=== PATIENT | female | born 1950 | race Caucasian/White ===

== ENCOUNTER 2016-10-29 14:14 | Emergency (ER) | payer MEDICARE, OTHER ==
--- NOTE | 2016-10-29 14:45 | EDM.PDOC ---
ED HPI GENERAL MEDICAL PROBLEM - General Chief Complaint: Cardiovascular Problem Stated Complaint: HIGH BLOOD PRESSURE Time Seen by Provider: 10/29/16 14:44 Source of Information: Reports: Patient History Limitations: Reports: No Limitations - History of Present Illness INITIAL COMMENTS - FREE TEXT/NARRATIVE: Patient is 66-year-old female presents ED with concerns of elevated blood pressure. Patient was seen by her kitchen and bath designer Dr. oLera at [facility] this past . Patient was instructed to stop taking her Imdur and also metoprolol. She was started on Coreg 6.25 mg twice a day with meals. In addition diltiazem was decreased from 360 mg every day to 240 mg. States since doing so she's noticed her blood pressure has been all over the place. She states at times she has felt it increasing and develops a mild headache. She's had some mild dizziness with intermittent slight chest discomfort rated very mildly 0-1/10. She presents to the ED with only headache present. She denies chest pain, shortness of breath, nausea/vomiting, vision changes, weakness, numbness/tingling, presyncopal episodes/syncopal episode, or any additional complaints. Chest Pain Score (Numeric/FACES): 2 - Related Data Allergies Allergy/AdvReac Type Severity Reaction Status Date / Time codeine Allergy Intermediate Confusion Verified 10/29/16 14:24 prednisone Allergy Intermediate Confusion Verified 10/29/16 14:24 Home Meds: Home Meds Aspirin [Halfprin] 81 mg PO BID 05/29/13 [History] Digoxin [Lanoxin] 125 mcg PO DAILY 30 Days tablet 09/04/13 [Rx] LORazepam [Ativan] 0.5 mg PO Q8H PRN 10 Days tab 09/04/13 [Rx] Escitalopram Oxalate 1 tab PO DAILY 09/02/14 [History] Omeprazole 1 tab PO ACBRK 09/02/14 [History] Warfarin Sodium 0.5 tab PO SUTUWETHSA 09/02/14 [History] Warfarin Sodium 1 tab PO MOFR 09/02/14 [History] Carvedilol [Coreg] 6.25 mg PO BIDMEALS 10/29/16 [History] Diltiazem [Cardizem CD] 240 mg PO ACBRK 10/29/16 [History] Past Medical History HEENT History: Reports: Cataract Cardiovascular History: Reports: High Cholesterol, Hypertension Other Cardiovascular History: atrial fib Respiratory History: Reports: Bronchitis, Recurrent - Past Surgical History GI Surgical History: Reports: Bariatric Procedure Other GI Surgeries/Procedures: laparoscopic Social & Family History - Tobacco Use Smoking Status *Q: Current Every Day Smoker Years of Tobacco use: 25 Packs/Tins Daily: 0.7 Used Tobacco, but Quit: No Month Tobacco Last Used: august Second Hand Smoke Exposure: Yes - Caffeine Use Caffeine Use: Reports: Coffee - Alcohol Use Days Per Week of Alcohol Use: 7 Number of Drinks Per Day: 4 Total Drinks Per Week: 28 - Recreational Drug Use Recreational Drug Use: No Drug Use in Last 12 Months: No - Living Situation & Occupation Living situation: Reports: Occupation: Retired ED ROS GENERAL - Review of Systems Review Of Systems: ROS reveals no pertinent complaints other than HPI. ED EXAM, GENERAL - Physical Exam Exam: See Below Exam Limited By: No Limitations General Appearance: Alert, WD/WN, No Apparent Distress Eye Exam: Bilateral Eye: EOMI, PERRL Ears: Hearing Grossly Normal Nose: Normal Inspection, Normal Mucosa Throat/Mouth: Normal Voice, No Airway Compromise Neck: Normal Inspection, Supple Respiratory/Chest: No Respiratory Distress, Lungs Clear, Normal Breath Sounds, No Accessory Muscle Use, Chest Non-Tender Cardiovascular: Normal Peripheral Pulses, Regular Rate, Rhythm Peripheral Pulses: 2+: Radial (R) GI/Abdominal: Normal Bowel Sounds, Soft, Non-Tender, No Organomegaly, No Distention Back Exam: Normal Inspection Extremities: Normal Inspection, Normal Range of Motion, Non-Tender, No Pedal Edema, Normal Capillary Refill Neurological: Alert, Oriented, CN II-XII Intact, Normal Cognition, No Motor/ Sensory Deficits Psychiatric: Normal Affect, Normal Mood Skin Exam: Warm, Dry, Intact, Normal Color Course - Vital Signs Last Recorded V/S: Last Vital Signs Temp 98.6 F 10/29/16 14:38 Pulse 68 10/29/16 16:53 Resp 18 10/29/16 16:53 BP 178/88 H 10/29/16 16:53 Pulse Ox 99 10/29/16 16:53 - Orders/Labs/Meds Orders: Active Orders 24 hr Category Date Time Status EKG 12 Lead [EKG Documentation Completion] [RC] STAT Care 10/29/16 14:43 Active Meds: Medications Discontinued Medications Generic Name Dose Route Start Last Admin Trade Name Freq PRN Reason Stop Dose Admin Clonidine HCl 0.1 mg 10/29/16 15:08 10/29/16 15:14 Catapres PO 10/29/16 15:09 0.1 mg ONETIME ONE Administration - Re-Assessments/Exams Free Text/Narrative Re-Assessment/Exam: Patient complains of only mild headache. EKG: A Fib at a rate of 79. Borderline left axis deviation. Mild ST depression to V5-V6, I. T waves flat VL, Decreased voltage limb leads. Offered to obtain blood work to ensure no SD presents. She refuses. States pain to the left side is a 0-10. Common issue with blood pressure elevation. Discussed with Dr. Parker. Suggests starting previous dose of cardizem 360mg PO daily for additional wk allowing coreg to take affect. Will order clonidine 0.1mg PO x1. 10/29/16 16:21 Reassessment, BP did trend down nicely with administration of clonidine, 140/s. Patient just returned from the bathroom and recheck of bp indicated 180/s. She had no symptoms with ambulation. She is ready to be discharged home. Departure - Departure Time of Disposition: 16:23 Disposition: Home, Self-Care 01 Condition: Good Clinical Impression: Essential hypertension Instructions: Hypertension, [id number] Referrals: Vannesa Bowman, [employer] [Primary Care Provider] - Forms: ED Department Discharge Additional Instructions: As discussed will have you continue taking the coreg 6.25mg twice a day as prescribed by Dr. Loera. Will have you go back to original dose of diltiazem 360mg every day for the next wk. Thereafter coreg should be therapeutic and thus may decrease dose of diltiazem to 240mg qd. Continue to monitor BP three times daily, same time, same way everyday.Keep daily log. Allow yourself to rest/relax for 5 to 10 minutes prior to checking. See your PCP this week to ensure BP is normalizing.Followup with Dr. Loera in two wks as scheduled. Return to the E.D. for any new or worsening symptoms. - My Orders Last 24 Hours: My Active Orders 10/29/16 14:43 EKG 12 Lead [EKG Documentation Completion] [RC] STAT - Assessment/Plan Last 24 Hours: My Active Orders 09/03/17 14:43 EKG 12 Lead [EKG Documentation Completion] [RC] STAT
[2016-10-29] MEDS ORDERED: cloNIDine 0.1 MG Tab PO ONE (15:08)
[2016-10-29 17:02] VITALS: BP 178/88
== END 2016-10-29 16:30 | disposition home or self-care (01) ==
LOC: JD.ED 14:14
DX: I10 Essential (primary) hypertension (principal); E78.00 Pure hypercholesterolemia, unspecified; F17.210 Nicotine dependence, cigarettes, uncomplicated; Z88.5 Allergy status to narcotic agent; Z79.82 Long term (current) use of aspirin; Z79.899 Other long term (current) drug therapy; Z79.01 Long term (current) use of anticoagulants
CPT/HCPCS: 93005; 99283; A9270

== ENCOUNTER 2019-04-29 08:14 | Emergency (ER) | payer MEDICARE, OTHER ==
[2019-04-29] MEDS ORDERED: Sodium Chloride 0.9% 1,000 ML IV SCH (08:45)
--- NOTE | 2019-04-29 08:46 | EDM.PDOC ---
ED HPI GENERAL MEDICAL PROBLEM - General Chief Complaint: Cardiovascular Problem Stated Complaint: SOB/FAST HEART RATE Time Seen by Provider: 04/29/19 08:40 Source of Information: Reports: Patient History Limitations: Reports: No Limitations - History of Present Illness INITIAL COMMENTS - FREE TEXT/NARRATIVE: 68-year-old female presents to the ED with a history of racing heart / palpitations. Associated dyspnea on minimal exertion usually with walking. She states that she has had a paroxysmal nonproductive cough for the better part of 4 to 5 weeks. No associated fever or chills. She does not have any definitive orthopnea or PND. Denies any chest pain but occasionally has heaviness in her central chest. Is still smoking a half a pack to a pack per day. Denies any hemoptysis. Has never noticed any swelling in her lower extremities. Denies any recent changes to medications. She does have a cardiology appointment set up in [place] later this afternoon. Patient seemed to have more symptoms last night at about 2030 hrs. with palpitations and heavy pressure in her central chest. This is the reason she came to the ED this morning. Onset: Gradual Onset Date: 03/29/19 Duration: Week(s): (States he has been symptomatic for between 4 and 5 weeks.), Chronic, Constant Location: Reports: Chest Quality: Reports: Pressure Severity: Mild Improves with: Reports: None Worsens with: Reports: Other Context: Denies: Activity, Exercise, Lifting (Walking seems to make it a bit worse.), Sick Contact, Trauma, Other Associated Symptoms: Reports: Cough, Malaise. Denies: No Other Symptoms, Confusion, Chest Pain (Nonproductive chronic cough), cough w sputum, Diaphoresis , Fever/Chills, Headaches, Loss of Appetite, Nausea/Vomiting, Rash, Seizure, Shortness of Breath, Syncope, Weakness Treatments H[employer] OFFBEARER: Reports: Other (see below) Chest Pain Score (Numeric/FACES): 8 - Related Data Allergies Allergy/AdvReac Type Severity Reaction Status Date / Time codeine AdvReac Intermediate Confusion Verified 04/29/19 08:49 prednisone AdvReac Intermediate Confusion Verified 04/29/19 08:49 Home Meds: Home Meds Aspirin [Halfprin] 81 mg PO BID 05/29/13 [History] Digoxin [Lanoxin] 125 mcg PO DAILY 30 Days tablet 07/10/14 [Rx] LORazepam [Ativan] 0.5 mg PO Q8H PRN 10 Days tab 09/04/13 [Rx] Escitalopram Oxalate 10 mg PO DAILY 09/02/14 [History] Omeprazole 20 mg PO ACBRK 09/02/14 [History] Warfarin Sodium 2.5 mg PO TUFR 09/02/14 [History] Warfarin Sodium 5 mg PO SUMOWETHSA 09/02/14 [History] Carvedilol [Coreg] 6.25 mg PO BIDMEALS 10/29/16 [History] Diltiazem HCl [Cardizem Cd] 360 mg PO DAILY #30 cap.er.24h 04/29/19 [Rx] Diltiazem HCl [Diltiazem 24Hr ER] 240 mg PO BEDTIME 04/29/19 [History] Furosemide [Lasix] 40 mg PO DAILY #30 tablet 04/29/19 [Rx] dilTIAZem HCl [Diltiazem 24Hr ER (Cd)] 120 mg PO QPM 04/29/19 [History] Past Medical History HEENT History: Reports: Cataract Cardiovascular History: Reports: High Cholesterol, Hypertension Other Cardiovascular History: atrial fib Respiratory History: Reports: Bronchitis, Recurrent - Past Surgical History GI Surgical History: Reports: Bariatric Procedure Other GI Surgeries/Procedures: laparoscopic Social & Family History - Caffeine Use Caffeine Use: Reports: Coffee - Living Situation & Occupation Living situation: Reports: Occupation: Retired ED ROS GENERAL - Review of Systems Review Of Systems: See Below Constitutional: Reports: Malaise, Weakness, Fatigue. Denies: Fever, Chills HEENT: Reports: No Symptoms Respiratory: Reports: Shortness of Breath, Cough. Denies: Wheezing, Pleuritic Chest Pain Cardiovascular: Reports: Chest Pain (Planes of a central chest heaviness off and on.), Blood Pressure Problem, Dyspnea on Exertion, Lightheadedness, Palpitations. Denies: Claudication, Edema, Orthopnea Endocrine: Reports: Fatigue GI/Abdominal: Reports: Constipation (Occasional problems with constipation. States she uses laxatives or Colace every other night.) : Reports: Frequency Musculoskeletal: Reports: Back Pain, Joint Pain Skin: Reports: Bruising Neurological: Reports: No Symptoms (Bruises easily as she is on Coumadin.) Psychiatric: Reports: No Symptoms Hematologic/Lymphatic: Reports: No Symptoms Immunologic: Reports: No Symptoms ED EXAM, GENERAL - Physical Exam Exam: See Below Exam Limited By: No Limitations General Appearance: Alert, WD/WN, No Apparent Distress, Other (BP is 161/106 heart rate is 75) Eye Exam: Bilateral Eye: Normal Inspection Throat/Mouth: Normal Inspection, Normal Lips, Normal Teeth, Normal Oropharynx, Other (Is dry and mildly coated.) Head: Atraumatic, Normocephalic Neck: Normal Inspection, Supple, Non-Tender, Full Range of Motion. No: Lymphadenopathy (L), Lymphadenopathy (R) Respiratory/Chest: No Respiratory Distress, No Accessory Muscle Use, Decreased Breath Sounds (3 sterane treated both posterior lung ross by 20%. Questionable small pleural effusion on the right side clinically.). No: Respiratory Distress, Rales, Rhonchi, Wheezing Cardiovascular: Normal Peripheral Pulses, No Edema, No Murmur, No Rub, Irregularly Irregular (Monitor shows atrial fibrillation controlled rate) Peripheral Pulses: 2+: Posterior Tibial (L), Posterior Tibial (R), Dorsalis Pedis (L), Dorsalis Pedis (R) GI/Abdominal: Normal Bowel Sounds, Soft, Non-Tender, No Organomegaly, No Abnormal Bruit, No Mass, Pelvis Stable Back Exam: Normal Inspection, Full Range of Motion. No: CVA Tenderness (L), CVA Tenderness (R) Extremities: Normal Inspection, Normal Range of Motion, Non-Tender, No Pedal Edema Neurological: Alert, Oriented, CN II-XII Intact, Normal Cognition Psychiatric: Normal Affect, Normal Mood Skin Exam: Warm, Dry, Intact, Normal Color, No Rash EKG INTERPRETATION EKG Date: 04/29/19 Time: 08:40 Rhythm: A-Fib (With rate of 52 to 75/min) Rate (Beats/Min): 73 [place]: Normal P-Wave: Absent QRS: Other (There is Q wave in V1 and initial poor R wave progression. Consider old anteroseptal myocardial infarction.) ST-T: Other (Minimal ST segment depression V4 and V5.) QT: Normal EKG Interpretation Comments: Abnormal ECG Course - Vital Signs Last Recorded V/S: Last Vital Signs Temp 36.8 C 04/29/19 11:50 Pulse 80 04/29/19 11:50 Resp 16 04/29/19 11:50 BP 151/66 H 04/29/19 11:50 Pulse Ox 92 L 04/29/19 11:50 - Orders/Labs/Meds Orders: Active Orders 24 hr Category Date Time Status EKG Documentation Completion [RC] STAT Care 04/29/19 08:41 Active Labs: Laboratory Tests 04/29/19 04/29/19 04/29/19 Range/Units 08:30 08:30 08:30 WBC 4.24 (3.98-10.04) K/mm3 RBC 4.02 (3.98-5.22) M/mm3 Hgb 11.2 D (11.2-15.7) gm/dl Hct 35.6 (34.1-44.9) % MCV 88.6 D (79.4-94.8) fl MCH 27.9 (25.6-32.2) pg MCHC 31.5 L (32.2-35.5) g/dl RDW Std Deviation 49.9 H (36.4-46.3) fL Plt Count 308 D (182-369) K/mm3 MPV 8.7 L (9.4-12.3) fl Neut % (Auto) 59.0 (34.0-71.1) % Lymph % (Auto) 21.2 (19.3-51.7) % [place] % (Auto) 13.9 H (4.7-12.5) % Eos % (Auto) 5.2 (0.7-5.8) Baso % (Auto) 0.5 (0.1-1.2) % Neut # (Auto) 2.50 (1.56-6.13) K/mm3 Lymph # (Auto) 0.90 L (1.18-3.74) K/mm3 [place] # (Auto) 0.59 H (0.24-0.36) K/mm3 Eos # (Auto) 0.22 (0.04-0.36) K/mm3 Baso # (Auto) 0.02 (0.01-0.08) K/mm3 PT 27.6 H (9.7-12.0) SECONDS INR 2.68 APTT 37 H (22-31) SECONDS Sodium 138 (136-145) mEq/L Potassium 4.8 (3.5-5.1) mEq/L Chloride 103 (98-107) mEq/L Carbon Dioxide 27 (21-32) mEq/L Anion Gap 12.8 (5-15) BUN 10 (7-18) mg/dL Creatinine 0.9 (0.55-1.02) mg/dL Est Cr Clr Drug Dosing 46.00 mL/min Estimated GFR (MDRD) > 60 (>60) mL/min BUN/Creatinine Ratio 11.1 L (14-18) Glucose 117 H (80-115) mg/dL Calcium 8.6 (8.5-10.1) mg/dL Magnesium 2.1 (1.8-2.4) mg/dl Total Bilirubin 0.4 (0.2-1.0) mg/dL AST 17 (15-37) U/L ALT 18 (14-59) U/L Alkaline Phosphatase 68 (46-116) U/L CK-MB (CK-2) 1.1 (0-3.6) ng/ml Troponin I < 0.017 (0.00-0.056) ng/mL C-Reactive Protein 0.5 (<1.0) mg/dL NT-Pro-B Natriuret Pep (0-125) pg/mL Total Protein 8.0 (6.4-8.2) g/dl Albumin 3.3 L (3.4-5.0) g/dl Globulin 4.7 gm/dL Albumin/Globulin Ratio 0.7 L (1-2) Urine Color (Yellow) Urine Appearance (Clear) Urine pH (5.0-8.0) Ur Specific [place] (1.005-1.030) Urine Protein (Negative) Urine Glucose (UA) (Negative) Urine Ketones (Negative) Urine Occult Blood (Negative) Urine Nitrite (Negative) Urine Bilirubin (Negative) Urine Urobilinogen (0.2-1.0) Ur Leukocyte Esterase (Negative) Urine RBC (0-5) /hpf Urine WBC (0-5) /hpf Ur Squamous Epith Cells (0-5) /hpf Urine Bacteria (FEW) /hpf Urine Mucus (FEW) /hpf Digoxin 0.6 L (0.9-2.0) ng/mL 04/29/19 04/29/19 Range/Units 08:30 10:35 WBC (3.98-10.04) K/mm3 RBC (3.98-5.22) M/mm3 Hgb (11.2-15.7) gm/dl Hct (34.1-44.9) % MCV (79.4-94.8) fl MCH (25.6-32.2) pg MCHC (32.2-35.5) g/dl RDW Std Deviation (36.4-46.3) fL Plt Count (182-369) K/mm3 MPV (9.4-12.3) fl Neut % (Auto) (34.0-71.1) % Lymph % (Auto) (19.3-51.7) % [place] % (Auto) (4.7-12.5) % Eos % (Auto) (0.7-5.8) Baso % (Auto) (0.1-1.2) % Neut # (Auto) (1.56-6.13) K/mm3 Lymph # (Auto) (1.18-3.74) K/mm3 [place] # (Auto) (0.24-0.36) K/mm3 Eos # (Auto) (0.04-0.36) K/mm3 Baso # (Auto) (0.01-0.08) K/mm3 PT (9.7-12.0) SECONDS INR APTT (22-31) SECONDS Sodium (136-145) mEq/L Potassium (3.5-5.1) mEq/L Chloride (98-107) mEq/L Carbon Dioxide (21-32) mEq/L Anion Gap (5-15) BUN (7-18) mg/dL Creatinine (0.55-1.02) mg/dL Est Cr Clr Drug Dosing mL/min Estimated GFR (MDRD) (>60) mL/min BUN/Creatinine Ratio (14-18) Glucose (80-115) mg/dL Calcium (8.5-10.1) mg/dL Magnesium (1.8-2.4) mg/dl Total Bilirubin (0.2-1.0) mg/dL AST (15-37) U/L ALT (14-59) U/L Alkaline Phosphatase (46-116) U/L CK-MB (CK-2) (0-3.6) ng/ml Troponin I (0.00-0.056) ng/mL C-Reactive Protein (<1.0) mg/dL NT-Pro-B Natriuret Pep 2138 H (0-125) pg/mL Total Protein (6.4-8.2) g/dl Albumin (3.4-5.0) g/dl Globulin gm/dL Albumin/Globulin Ratio (1-2) Urine Color Light yellow (Yellow) Urine Appearance Clear (Clear) Urine pH 7.0 (5.0-8.0) Ur Specific [place] 1.025 (1.005-1.030) Urine Protein Negative (Negative) Urine Glucose (UA) Negative (Negative) Urine Ketones Negative (Negative) Urine Occult Blood Trace-lysed H (Negative) Urine Nitrite Negative (Negative) Urine Bilirubin Negative (Negative) Urine Urobilinogen 0.2 (0.2-1.0) Ur Leukocyte Esterase Negative (Negative) Urine RBC 5-10 H (0-5) /hpf Urine WBC 0-5 (0-5) /hpf Ur Squamous Epith Cells 0-5 (0-5) /hpf Urine Bacteria Few (FEW) /hpf Urine Mucus Not seen (FEW) /hpf Digoxin (0.9-2.0) ng/mL Meds: Medications Discontinued Medications Generic Name Dose Route Start Last Admin Trade Name Akinq PRN Reason Stop Dose Admin Diltiazem HCl 300 mg 04/29/19 10:06 04/29/19 10:12 Cardizem Cd PO 04/29/19 10:07 Not Given ONETIME ONE Furosemide 40 mg 04/29/19 09:48 04/29/19 10:11 Lasix IVPUSH 04/29/19 09:49 40 mg NOW ONE Administration Sodium Chloride 1,000 mls @ 125 mls/hr 04/29/19 08:45 04/29/19 09:15 Normal Saline IV 125 mls/hr ASDIRECTED JASON Administration - Radiology Interpretation Free Text/Narrative:: 68-year-old female presents to the ED with recurrent feeling of her heart racing and skipping in her chest. By history she has chronic atrial fibrillation and is on Coumadin and diltiazem and digoxin for rate control. Reports she has been having symptoms off and on for the last 3 weeks. She has a paroxysmal nonproductive cough with no significant orthopnea or PND but dyspnea on minimal exertion. Last evening she had a feeling of racing heart and some central heavy pressure in her chest. Suggest that she has some angina associated with a rapid rate. At the time of presentation to the ED heart rate is in the 70s and appears that her atrial fib rate is well controlled. He is mildly hypoxic with O2 sats of 92 to 93% on room air. Blood pressure is 151/ 63. Exam suggest possible small pleural effusion on the right side with decreased air entry to both lower lung ross. However she is also a cigarette smoker with COPD changes. Routine labs including cardiac markers ECG and chest x-ray to be done. She is mildly dry at this time. Given normal saline at 125 mils per hour. - Re-Assessments/Exams Free Text/Narrative Re-Assessment/Exam: 04/29/19 09:24 chest x-ray reveals normal cardiac silhouette. There is slight prominence of the right pulmonary artery. No pleural effusions and no pulmonary infiltrates evident. 04/29/19 09:48 Hematology reveals a white count of 4.24. There is 59% neutrophils on the auto differential. Hemoglobin is 11.2 slightly low with a hematocrit of 35.6. MCV is 88.6. Platelet count 308,000. PT is 27.6 with an INR of 2.68 slightly supratherapeutic. PTT is 37 sodium is 138 with a potassium of 4.8. Chloride 103 with a bicarb 27 anion gap is 12.8. BUN is 10 with a creatinine of 0.9. GFR remains greater than 60. Glucose 117. Calcium 8.6. Magnesium normal at 2.1. Liver function is normal. CK-MB is 1.1 with a troponin I of less than 0.017. C-reactive protein is 0.5 BNP is elevated at 2138. Total protein is 8.0 with an albumin fraction of 3.3. Serum digoxin is therapeutic at 0.6. When she will be given Lasix 40 mg IV. Her saline intravenously will be discontinued 04/29/19 09:51 and has a cardiology appointment to see Dr. Rebolledo in [facility] at 1400hrs today. Is and feels she will build to make this appointment. I am therefore going to increase her Cardizem to 160 mg CD preparation daily. Will be an increase from 240. She will need Lasix 40 mg once daily every morning. 04/29/19 10:00 Departure - Departure Time of Disposition: 11:01 Disposition: Home, Self-Care 01 Condition: Fair Clinical Impression: Atrial fibrillation with rapid ventricular response Congestive heart failure Qualifiers: Heart failure type: unspecified Heart failure chronicity: acute Qualified Code( s): I50.9 - Heart failure, unspecified Prescriptions: Diltiazem HCl [Cardizem Cd] 360 mg PO DAILY #30 cap.er.24h Furosemide [Lasix] 40 mg PO DAILY #30 tablet Instructions: Atrial Fibrillation, [id number] Referrals: Davion Gregorio MD [Primary Care Provider] - Forms: ED Department Discharge Additional Instructions: Evaluation in the emergency room this morning in regards to persistent paroxysmal nonproductive cough associate with shortness of breath on minimal exertion and pressure in your chest. Feeling of your heart racing and skipping at times particularly last evening. You have a history of chronic atrial fibrillation and by the sounds of things your heart is going to fast at other times meaning the atrial fibrillation heart rate is not well controlled. Lab test today reveal that there is an increased amount of fluid buildup in your lungs called congestive heart failure likely secondary to the rapid heart rate. Therefore changes to your medications will be made. We will discontinue the Cardizem 240 mg CD preparation and replace it with 360 mg CD preparation once daily. You will also need to take a water pill Lasix 40 mg once daily every morning. Suggest follow-up with a crane follower within the next 10 days and cancel todays appointment as you will not be able to make it to [place] in time. Not able to see Dr. Rebolledo within the next 10 days then please follow-up with Dr. Gregorio. Sepsis Event Note - Focused Exam Vital Signs: Vital Signs Temp Pulse Resp BP Pulse Ox 04/29/19 11:50 36.8 C 80 16 151/66 H 92 L 04/29/19 08:20 36.7 C 74 20 154/76 H 93 L Date Exam was Performed: 04/29/19 Time Exam was Performed: 20:04 - My Orders Last 24 Hours: My Active Orders 04/29/19 08:41 EKG Documentation Completion [RC] STAT - Assessment/Plan Last 24 Hours: My Active Orders 04/29/19 08:41 EKG Documentation Completion [RC] STAT
--- NOTE | 2019-04-29 09:12 | CR ---
Chest: Portable view of the chest was obtained. Comparison: Prior chest x-ray of 05/29/13. Heart size and mediastinum are normal. Lungs are clear with no acute parenchymal change. Bony structures are grossly intact. Surgical jennifer are noted within the left upper abdomen. Impression: 1. Nothing acute is appreciated on portable chest x-ray. Diagnostic code #2 This report was dictated in [place] Standard Time
[2019-04-29] MEDS ORDERED: Furosemide 40 MG/4 ML VIAL IVPUSH ONE (09:48)
[2019-04-29] MEDS ORDERED: Diltiazem 300 MG Cap.CD PO ONE ×2 (09:56→10:06)
[2019-04-29 12:46] VITALS: BP 151/66; PULSE 80
== END 2019-04-29 11:55 | disposition home or self-care (01) ==
LOC: JD.ED 08:14
DX: I11.0 Hypertensive heart disease with heart failure (principal); I50.9 Heart failure, unspecified; I48.91 Unspecified atrial fibrillation; Z88.5 Allergy status to narcotic agent; Z88.8 Allergy status to other drugs, medicaments and biological substances; Z79.899 Other long term (current) drug therapy; Z79.82 Long term (current) use of aspirin
CPT/HCPCS: 36415; 71045; 80053; 80162; 81001; 82553; 83735; 83880; 84484; 85025; 85610; 85730; 86140; 93005; 96361; 96374; 99285; J1940; J7030; 93010

== ENCOUNTER 2020-04-19 09:26 | Emergency (ER) | payer MEDICARE, OTHER ==
[2020-04-19 09:37] VITALS: BP 159/71
--- NOTE | 2020-04-19 09:56 | EDM.PDOC ---
ED HPI GENERAL MEDICAL PROBLEM - General Chief Complaint: Cardiovascular Problem Stated Complaint: FLUTTERING HEART Time Seen by Provider: 04/19/20 09:51 Source of Information: Reports: Patient History Limitations: Reports: No Limitations - History of Present Illness INITIAL COMMENTS - FREE TEXT/NARRATIVE: 69-year-old female who states she has chronic atrial fibrillation presents to the ED with a 4-day history of rapid irregular heartbeat which she can feel in her left precordial chest. Patient is on Coumadin chronically for atrial fib. It leaves her with a left precordial chest pressure discomfort. She denies being lightheaded dizzy or weak in the legs or necessarily short of breath. No orthopnea or PND. No recent changes to any of her medications. She states she has a mild cough which is nonproductive. She denies any past history of COVID- 19 illness. Onset: Sudden Onset Date: 04/16/20 (Is noticed fast heart rate beating irregular in her chest for about 4 days.) Duration: Day(s):, Constant, Getting Worse Location: Reports: Chest (The left precordial chest discomfort is perhaps getting a little bit worse and certainly more persistent. Mostly left precordial chest discomfort.) Quality: Reports: Ache, Pressure Severity: Mild Improves with: Reports: None (2 out of 10) Worsens with: Reports: None Context: Denies: Activity, Exercise, Lifting, Sick Contact, Trauma, Other Associated Symptoms: Reports: Chest Pain, Cough, Shortness of Breath. 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) (No changes to any of her medications.) Chest Pain Score (Numeric/FACES): 1 - Related Data Allergies Allergy/AdvReac Type Severity Reaction Status Date / Time furosemide [From Lasix] Allergy Hives Verified 04/19/20 09:37 codeine AdvReac Intermediate Confusion Verified 04/19/20 09:37 prednisone AdvReac Intermediate Confusion Verified 04/19/20 09:37 Home Meds: Home Meds Aspirin [Halfprin] 81 mg PO BID 05/29/13 [History] Warfarin Sodium 2.5 mg PO TUFR 09/02/14 [History] Warfarin Sodium 5 mg PO SUMOWETHSA 09/02/14 [History] Carvedilol [Coreg] 1.5 tab PO BIDMEALS 10/29/16 [History] Albuterol Sulfate [Albuterol Sulfate HFA] 2 puff INH Q4H PRN 04/19/20 [History] Bumetanide [Bumex] 1 mg PO BID #5 tablet 04/19/20 [Rx] Bumetanide [Bumex] 1 tab PO ASDIRECTED PRN 04/19/20 [History] Digoxin [Lanoxin] 125 mcg PO ASDIRECTED 04/19/20 [History] Diltiazem HCl [Cardizem LA] 360 mg PO DAILY #30 tab.sr.24h 04/19/20 [Rx] Doxazosin Mesylate [Cardura] 1 tab PO BEDTIME 04/19/20 [History] Levothyroxine [Synthroid] 1 tab PO DAILY 04/19/20 [History] Olmesartan [Benicar] 0.5 tab PO DAILY 04/19/20 [History] Omeprazole 1 tab PO DAILY 04/19/20 [History] Ondansetron [Zofran ODT] 1 tab BUCCAL ASDIRECTED PRN 04/19/20 [History] PARoxetine [Paxil] 0.5 tab PO DAILY 04/19/20 [History] hydrALAZINE [Apresoline] 2 tab PO ASDIRECTED PRN 04/19/20 [History] Past Medical History HEENT History: Reports: Cataract Other HEENT History: wears eyeglasses. 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 Psychiatric History: Reports: Anxiety Hematologic History: Reports: Blood Transfusion(s) - Infectious Disease History Infectious Disease History: Reports: Measles - Past Surgical History HEENT Surgical History: Reports: Cataract Surgery GI Surgical History: Reports: Bariatric Procedure Other GI Surgeries/Procedures: laparoscopic Social & Family History - Tobacco Use Tobacco Use Status *Q: Current Every Day Tobacco User Years of Tobacco use: 50 Packs/Tins Daily: 0.5 - Caffeine Use Caffeine Use: Reports: Coffee - Recreational Drug Use Recreational Drug Use: No - Living Situation & Occupation Living situation: Reports: Occupation: Retired ED ROS GENERAL - Review of Systems Review Of Systems: See Below Constitutional: Reports: Malaise, Weakness, Fatigue. Denies: Fever, Chills, Decreased Appetite, Weight Loss HEENT: Reports: Glasses Respiratory: Reports: Shortness of Breath, Cough. Denies: Wheezing, Pleuritic Chest Pain Cardiovascular: Reports: Chest Pain (Productive), Blood Pressure Problem ( left precordial chest pressure heaviness for the last 4 days.), Dyspnea on Exertion, Palpitations (On occasion. Aware of palpitations says she has chronic atrial fibrillation.). Denies: Claudication, Edema, Lightheadedness, Orthopnea Endocrine: Reports: Fatigue GI/Abdominal: Reports: Decreased Appetite. Denies: Diarrhea, Nausea, Vomiting : Reports: Frequency, Incontinence (Urge and stress components.) Musculoskeletal: Reports: Back Pain, Joint Pain (Knees hips low back at times) Skin: Reports: Bruising Neurological: Reports: Dizziness, Weakness. Denies: Confusion, Headache, Numbness, Syncope, Tingling (A little bit dizzy this morning with walking.), T rouble Speaking (Perhaps a little weakness in her lower extremities as well), Difficulty Walking Psychiatric: Reports: No Symptoms Hematologic/Lymphatic: Reports: No Symptoms Immunologic: Reports: No Symptoms ED EXAM, GENERAL - Physical Exam Exam: See Below Exam Limited By: No Limitations General Appearance: Alert, WD/WN, No Apparent Distress, Other (Temperature is 36.2 degrees. Heart rate was 84 and irregularly irregular compatible with atrial fibrillation. Respiratory was 18 with O2 sats of 94 to 96% room air. BP slightly elevated at 159/71.) Eye Exam: Bilateral Eye: Normal Inspection, PERRL Throat/Mouth: Normal Inspection, Normal Lips, Normal Teeth, Normal Gums, Normal Oropharynx Head: Atraumatic, Normocephalic, Other (No outward signs of any head or facial trauma.) Neck: Normal Inspection, Limited Range of Motion (She has limited lateral rotation and flexion with mild crepitus on palpation.). No: Supple, Full Range of Motion, Carotid Bruit, Lymphadenopathy (L), Lymphadenopathy (R) Respiratory/Chest: No Respiratory Distress, No Accessory Muscle Use, Rales (Perh aps a few rales right base.) Cardiovascular: No Edema, No Gallop, No Murmur, No Rub, Irregularly Irregular (Irregular irregular heart rhythm combined with atrial fibrillation.). No: Normal Peripheral Pulses Peripheral Pulses: 2+: Carotid (L), Carotid (R), Posterior Tibial (L), Posterior Tibial (R), Dorsalis Pedis (L), Dorsalis Pedis (R) GI/Abdominal: Normal Bowel Sounds, Soft, Non-Tender, No Organomegaly, Pelvis Stable, Distended (Distended upper abdomen with tympany to percussion compose some degree of aerophagia.). No: Guarding, Rigid, Rebound, Tender Back Exam: Normal Inspection, Decreased Range of Motion. No: CVA Tenderness (L) (Does have some diffuse low back pain which limits his normal ability.), CVA Tenderness (R) Extremities: Normal Inspection, Normal Range of Motion, Non-Tender, No Pedal Edema Neurological: Alert, Oriented, CN II-XII Intact, Normal Cognition Psychiatric: Normal Affect, Normal Mood Skin Exam: Warm, Dry, Intact, Normal Color, No Rash #1 Interpretation EKG Date: 04/19/20 Time: 09:31 Rhythm: A-Fib (With a rate of 48 to 135 bpm.) Rate (Beats/Min): 90 [place]: LAD-Left [place] Deviation (Left axis deviation of -25 degrees) P-Wave: Absent QRS: Other (Decreased voltage in the limb leads. There is a Q wave in leads V1 V2 compatible with old anteroseptal myocardial infarction.) ST-T: Depressed (Mild ST segment depression V4 to V6 T wave flattening 1 and aVL as well as lead III and lead II. Cannot rule out ischemia) EKG Interpretation Comments: Abnormal ECG Course - Vital Signs Last Recorded V/S: Last Vital Signs Temp 36.2 C 04/19/20 09:32 Pulse 84 04/19/20 09:32 Resp 18 04/19/20 09:32 BP 159/71 H 04/19/20 09:32 Pulse Ox 94 L 04/19/20 09:32 - Orders/Labs/Meds Orders: Active Orders 24 hr Category Date Time Status EKG Documentation Completion [RC] ASDIRECTED Care 04/19/20 09:34 Active Sodium Chloride 0.9% [Normal Saline] 1,000 ml Med 04/19/20 10:00 Active IV ASDIRECTED EKG 12 Lead [EK] Stat Ther 04/19/20 09:33 Ordered Medication Orders Sodium Chloride (Normal Saline) 1,000 mls @ 100 mls/hr IV ASDIRECTED JASON Last Admin: 04/19/20 10:28 Dose: 100 mls/hr Documented by: KENAN Labs: Laboratory Tests 04/19/20 04/19/20 04/19/20 Range/Units 10:25 10:25 10:25 WBC 4.08 (3.98-10.04) K/mm3 RBC 4.00 (3.98-5.22) M/mm3 Hgb 13.3 D (11.2-15.7) gm/dl Hct 39.6 (34.1-44.9) % MCV 99.0 H D (79.4-94.8) fl MCH 33.3 H (25.6-32.2) pg MCHC 33.6 (32.2-35.5) g/dl RDW Std Deviation 49.7 H (36.4-46.3) fL Plt Count 198 D (182-369) K/mm3 MPV 8.6 L (9.4-12.3) fl Neut % (Auto) 57.7 (34.0-71.1) % Lymph % (Auto) 24.8 (19.3-51.7) % [place] % (Auto) 11.5 (4.7-12.5) % Eos % (Auto) 5.6 (0.7-5.8) Baso % (Auto) 0.2 (0.1-1.2) % Neut # (Auto) 2.35 (1.56-6.13) K/mm3 Lymph # (Auto) 1.01 L (1.18-3.74) K/mm3 [place] # (Auto) 0.47 H (0.24-0.36) K/mm3 Eos # (Auto) 0.23 (0.04-0.36) K/mm3 Baso # (Auto) 0.01 (0.01-0.08) K/mm3 PT 17.6 H (9.7-12.0) SECONDS INR 1.66 APTT 33.2 H (21.7-31.4) SECONDS Sodium 138 (136-145) mEq/L Potassium 4.8 (3.5-5.1) mEq/L Chloride 102 (98-107) mEq/L Carbon Dioxide 26 (21-32) mEq/L Anion Gap 14.8 (5-15) BUN 12 (7-18) mg/dL Creatinine 0.9 (0.55-1.02) mg/dL Est Cr Clr Drug Dosing 45.34 mL/min Estimated GFR (MDRD) > 60 (>60) mL/min BUN/Creatinine Ratio 13.3 L (14-18) Glucose 91 (83-115) mg/dL Calcium 8.8 (8.5-10.1) mg/dL Magnesium 1.9 (1.8-2.4) mg/dl Total Bilirubin 0.5 (0.2-1.0) mg/dL AST 20 (15-37) U/L ALT 21 (14-59) U/L Alkaline Phosphatase 60 (46-116) U/L CK-MB (CK-2) 1.2 (0-3.6) ng/ml Troponin I < 0.017 (0.00-0.056) ng/mL C-Reactive Protein <0.2 (<1.0) mg/dL NT-Pro-B Natriuret Pep (0-125) pg/mL Total Protein 7.6 (6.4-8.2) g/dl Albumin 3.3 L (3.4-5.0) g/dl Globulin 4.3 gm/dL Albumin/Globulin Ratio 0.8 L (1-2) TSH 3rd Generation (0.358-3.74) uIU/mL Urine Color (Yellow) Urine Appearance (Clear) Urine pH (5.0-8.0) Ur Specific [place] (1.005-1.030) Urine Protein (Negative) Urine Glucose (UA) (Negative) Urine Ketones (Negative) Urine Occult Blood (Negative) Urine Nitrite (Negative) Urine Bilirubin (Negative) Urine Urobilinogen (0.2-1.0) Ur Leukocyte Esterase (Negative) Urine RBC (0-5) /hpf Urine WBC (0-5) /hpf Ur Epithelial Cells (0-5) /hpf Urine Bacteria (FEW) /hpf Urine Mucus (FEW) /hpf Digoxin (0.9-2.0) ng/mL 04/19/20 04/19/20 04/19/20 Range/Units 10:25 10:25 10:25 WBC (3.98-10.04) K/mm3 RBC (3.98-5.22) M/mm3 Hgb (11.2-15.7) gm/dl Hct (34.1-44.9) % MCV (79.4-94.8) fl MCH (25.6-32.2) pg MCHC (32.2-35.5) g/dl RDW Std Deviation (36.4-46.3) fL Plt Count (182-369) K/mm3 MPV (9.4-12.3) fl Neut % (Auto) (34.0-71.1) % Lymph % (Auto) (19.3-51.7) % [place] % (Auto) (4.7-12.5) % Eos % (Auto) (0.7-5.8) Baso % (Auto) (0.1-1.2) % Neut # (Auto) (1.56-6.13) K/mm3 Lymph # (Auto) (1.18-3.74) K/mm3 [place] # (Auto) (0.24-0.36) K/mm3 Eos # (Auto) (0.04-0.36) K/mm3 Baso # (Auto) (0.01-0.08) K/mm3 PT (9.7-12.0) SECONDS INR APTT (21.7-31.4) SECONDS Sodium (136-145) mEq/L Potassium (3.5-5.1) mEq/L Chloride (98-107) mEq/L Carbon Dioxide (21-32) mEq/L Anion Gap (5-15) BUN (7-18) mg/dL Creatinine (0.55-1.02) mg/dL Est Cr Clr Drug Dosing mL/min Estimated GFR (MDRD) (>60) mL/min BUN/Creatinine Ratio (14-18) Glucose (83-115) mg/dL Calcium (8.5-10.1) mg/dL Magnesium (1.8-2.4) mg/dl Total Bilirubin (0.2-1.0) mg/dL AST (15-37) U/L ALT (14-59) U/L Alkaline Phosphatase (46-116) U/L CK-MB (CK-2) (0-3.6) ng/ml Troponin I (0.00-0.056) ng/mL C-Reactive Protein (<1.0) mg/dL NT-Pro-B Natriuret Pep 2009 H (0-125) pg/mL Total Protein (6.4-8.2) g/dl Albumin (3.4-5.0) g/dl Globulin gm/dL Albumin/Globulin Ratio (1-2) TSH 3rd Generation 2.073 (0.358-3.74) uIU/mL Urine Color Yellow (Yellow) Urine Appearance Clear (Clear) Urine pH 6.0 (5.0-8.0) Ur Specific [place] 1.020 (1.005-1.030) Urine Protein Negative (Negative) Urine Glucose (UA) Negative (Negative) Urine Ketones Negative (Negative) Urine Occult Blood 1+ H (Negative) Urine Nitrite Negative (Negative) Urine Bilirubin Negative (Negative) Urine Urobilinogen 0.2 (0.2-1.0) Ur Leukocyte Esterase Negative (Negative) Urine RBC Not seen (0-5) /hpf Urine WBC 0-5 (0-5) /hpf Ur Epithelial Cells 0-5 (0-5) /hpf Urine Bacteria Not seen (FEW) /hpf Urine Mucus Not seen (FEW) /hpf Digoxin 1.3 (0.9-2.0) ng/mL Meds: Medications Generic Name Dose Route Start Last Admin Trade Name Freq PRN Reason Stop Dose Admin Sodium Chloride 1,000 mls @ 100 mls/hr 04/19/20 10:00 04/19/20 10:28 Normal Saline IV 100 mls/hr ASDIRECTED JASON Administration - Radiology Interpretation Free Text/Narrative:: 69-year-old female with a history of chronic atrial fibrillation presents to the ED with a 4-day history of feeling her heart racing and beating in her chest faster than normal. Associated with this is a diffuse left precordial chest heaviness or discomfort. No recent changes to any of her medications. She is on digoxin and Cartia zyme for rate control as well as low-dose carvedilol 3.25 mg 1 twice daily. She is on Coumadin to prevent stroke. Plan routine labs to be performed including an ECG and chest x-ray. At rest her heart rate is staying in the 80s and 90s and appears to be controlled atrial fibrillation. However the ECG does suggest a heart rate of anywhere from 48 to 135 bpm. - Re-Assessments/Exams Free Text/Narrative Re-Assessment/Exam: 04/19/20 10:45 even up with walking to the washroom she did not show an excessive increase in atrial fibrillation rate. It stayed right around 100. Therefore I am not going to add any medication for heart rate control at this time we will wait and see what her cardiac markers are since she has this persistent left precordial chest discomfort. Chest X-ray revealed moderate cardiomegaly. No pleural effusions. Slightly tortuous thoracic aorta. Lung parenchyma appears normal. Small pericardial fat pad is seen within the right side which was seen on previous chest x-ray. 04/19/20 11:52 White count is 4.08 with 57.7% neutrophils on the auto differential. Hemoglobin is 13.3 with hematocrit of 39.6. MCV is elevated at 99.0 platelet count 198,000. PT is 17.6 with an INR 1.66 which is subtherapeutic for her atrial fib. PTT is 33.2. Sodium 138 with a potassium of 4.8. Chloride 102 with a bicarb of 26. Anion gap is 14.8. BUN is 12 with a creatinine of 0.9 and a GFR greater than 60. Glucose is 91. Calcium is 8.8 magnesium is 1.9 liver function is normal. CK-MB fraction is 1.2 troponin I is less than 0.017. C-reactive protein is less than 0.2 BNP is 2009. Total protein 7.6 with an albumin fraction slightly low at 3.3. TSH is normal at 2.073. Urinalysis shows 1+ occult blood no signs of infection digoxin level is therapeutic at 1.3 04/19/20 11:59 I have discussed the findings of the patient's lab work with her. I believe she could use a little bit more cardia zyme which will do 2 things help reduce her systolic hypertension and help prevent the heart from fibrillating quite at such a fast rate. ECG showed it goes up to 135 bpm at times. Her digoxin is therapeutic at this time. Her Coumadin time is subtherapeutic and she would benefit from a dosage increase made in this regard. Apparently this is monitored and arranged through the Coumadin clinic in [place]. The other thing I am going to do is increase her Bumex to 1 mg morning and p.m. about 2:00 for 5 days to help reduce some congestive heart failure likely aggravated by rapid heart rate from atrial fibrillation. I s uspect the heaviness she feels in her left precordial chest is secondary to congestive failure. I have asked her to follow-up with Dr. Gregorio in clinic in 1 week's time 04/19/20 12:18 clinic pharmacy called over and indicate that the patient has not picked up Bumex since October. Therefore I have been adjusted her medication to Bumex 1 mg every morning x30 tablets which can be adjusted by Dr. Gregorio . Departure - Departure Time of Disposition: 12:01 Disposition: Home, Self-Care 01 Reason for Transfer *Q: Other Condition: Fair Clinical Impression: Atrial fibrillation with RVR, Essential hypertension Congestive heart failure Qualifiers: Heart failure type: unspecified Heart failure chronicity: acute Qualified Code(s): I50.9 - Heart failure, unspecified Prescriptions: Bumetanide [Bumex] 1 mg PO BID #5 tablet Diltiazem HCl [Cardizem LA] 360 mg PO DAILY #30 tab.sr.24h Instructions: Atrial Fibrillation, [id number] Referrals: Davion Gregorio MD [Primary Care Provider] - Forms: ED Department Discharge Additional Instructions: Evaluation in the emergency room today in regards to awareness of increased rapid heart rate due to atrial fibrillation which you have been in for a long period of time. ECG revealed heart rate was going anywhere from 48 bpm 235 bpm. It primarily stays in the 90s however. I therefore think you would benefit from an increased dose of Cardizem from 240 mg CD preparation daily to 360 mg once daily which will help control systolic or elevated blood pressure on the top number as well as heart rate. You were to discontinue the to 40 mg preparation and I would suggest throwing them away. Or duct taking them back to your pharmacy. Suggest increase in your Bumex water pill 1 mg in the morning and 1 mg about 1400 hrs. or 2:00 in the afternoon daily for the next 5 days to help clear some of the fluid out of your lungs that has been caused by the rapid atrial fibrillation rate. Your Coumadin time is a bit on the low side with an INR of 1.66 and could benefit from an increased dosage. I would have you call Dr. Gregorio`s nurse in this regard to adjust your Coumadin dosage since most of the Coumadin dosage is done by the Coumadin clinic in [place]. Follow-up with Dr. Gregorio in the clinic in 1 week's time to check on new medication changes Sepsis Event Note (ED) - Evaluation Sepsis Screening Result: No Definite Risk - Focused Exam Vital Signs: Vital Signs Temp Pulse Resp BP Pulse Ox 04/19/20 09:32 36.2 C 84 18 159/71 H 94 L - My Orders Last 24 Hours: My Active Orders 04/19/20 09:33 EKG 12 Lead [EK] Stat 04/19/20 09:34 EKG Documentation Completion [RC] ASDIRECTED 04/19/20 10:00 Sodium Chloride 0.9% [Normal Saline] 1,000 ml IV ASDIRECTED - Assessment/Plan Last 24 Hours: My Active Orders 04/19/20 09:33 EKG 12 Lead [EK] Stat 04/19/20 09:34 EKG Documentation Completion [RC] ASDIRECTED 04/19/20 10:00 Sodium Chloride 0.9% [Normal Saline] 1,000 ml IV ASDIRECTED
[2020-04-19] MEDS ORDERED: Sodium Chloride 0.9% 1,000 ML IV SCH (10:00)
--- NOTE | 2020-04-19 11:05 | CR ---
Chest: Portable view of the chest was obtained. Comparison: Prior chest x-ray at . Heart is enlarged. Slight density most likely representing small pericardial fat is seen within the right side. Lungs otherwise are clear. Bony structures are grossly intact. Surgical clips are seen within the upper abdomen. Impression: 1. Slight cardiomegaly. 2. Other findings as noted above. Nothing acute is seen. Diagnostic code #2
[2020-04-19 12:52] VITALS: PULSE 75
== END 2020-04-19 12:25 | disposition home or self-care (01) ==
LOC: JD.ED 09:26
DX: I48.91 Unspecified atrial fibrillation (principal); I11.0 Hypertensive heart disease with heart failure; I50.9 Heart failure, unspecified; M25.561 Pain in right knee; M25.562 Pain in left knee; M25.551 Pain in right hip; M25.552 Pain in left hip; M54.5 Low back pain; Z72.0 Tobacco use; Z88.8 Allergy status to other drugs, medicaments and biological substances; Z88.5 Allergy status to narcotic agent; Z79.82 Long term (current) use of aspirin; Z79.899 Other long term (current) drug therapy
CPT/HCPCS: 36415; 71045; 80053; 80162; 81001; 82553; 83735; 83880; 84443; 84484; 85025; 85610; 85730; 86140; 93005; 99285; J7030; 93010; 99284

== ENCOUNTER 2024-03-18 07:12 | Emergency (ER) | payer MEDICARE, OTHER ==
[2024-03-18 07:26] VITALS: PULSE 76
[2024-03-18] MEDS: Aspirin 81 MG Tab.Chew PO ONE (07:44)
[2024-03-18 07:49] LABS: BASOPHILS PERCENT AUTO 0.6 % (0.0-1.0); EOSINOPHILS ABSOLUTE AUTO 0.3 K/mm3 (0.0-0.4); EOSINOPHILS PERCENT AUTO 5.9 % (0.0-6.0); HEMATOCRIT 41.7 % (37.0-47.0); HEMOGLOBIN 14.2 gm/dl (12.0-16.0); IMMATURE GRAN ABSOLUTE AUTO 0.02 K/mm3 (0.00-0.05); IMMATURE GRAN PERCENT AUTO 0.4 % (0.0-0.4); LYMPHOCYTES PERCENT AUTO 20.4 % (24.0-44.0); MEAN CORPUSCULAR HEMOGLOBIN 31.9 pg (28.0-32.0); MEAN CORPUSCULAR HGB CONC 34.1 g/dl (32.0-36.0); MEAN CORPUSCULAR VOLUME 93.7 fl (83.0-99.0); MEAN PLATELET VOLUME 8.8 fl (9.4-12.3); MONOCYTES ABSOLUTE AUTO 0.6 K/mm3 (0.0-0.8); MONOCYTES PERCENT AUTO 11.8 % (0.0-8.0); NEUTROPHILS ABSOLUTE AUTO 2.9 K/mm3 (1.8-7.7); NEUTROPHILS PERCENT AUTO 60.9 % (41.0-71.0); PLATELET COUNT,PLT 242 K/mm3 (150-400); RED BLOOD CELL COUNT 4.45 M/mm3 (4.10-5.30); WHITE BLOOD CELL COUNT,WBC 4.75 K/mm3 (3.9-11.3)
[2024-03-18 08:18] LABS: INR 2.34; PROTHROMBIN TIME 23.5 SECONDS (9.7-12.0)
[2024-03-18 08:23] LABS: A/G RATIO 0.7 (1-2); ALBUMIN 3.4 g/dl (3.4-5.0); ANION GAP 11.6 (5-15); BILIRUBIN TOTAL 0.5 mg/dL (0.2-1.0); BUN/CREATININE RATIO 12.7 (14-18); CALCIUM 8.7 mg/dL (8.5-10.1); CREATININE 1.1 mg/dL (0.55-1.02); EST CRCL DRUG DOSING (CG) 36.04 mL/min; MAGNESIUM 2.1 mg/dL (1.8-2.4); POTASSIUM,K 4.6 mEq/L (3.5-5.1); PROTEIN TOTAL,TP 8.1 g/dl (6.4-8.2)
[2024-03-18] MEDS: Albuterol/Ipratropium 3.0-0.5 MG/3 ML Neb Soln NEB ONE (10:22)
[2024-03-18 13:38] VITALS: BP 127/89
== END 2024-03-18 11:35 | disposition home or self-care (01) ==
LOC: JD.ED 07:12
DX: R07.89 Other chest pain (principal); I11.0 Hypertensive heart disease with heart failure; I50.9 Heart failure, unspecified; Z88.8 Allergy status to other drugs, medicaments and biological substances; Z91.09 Other allergy status, other than to drugs and biological substances; Z79.82 Long term (current) use of aspirin; Z79.01 Long term (current) use of anticoagulants; Z79.899 Other long term (current) drug therapy
CPT/HCPCS: 36415; 71045; 80053; 83735; 83880; 84484; 85025; 85610; 93005; 94640; 99285; A9270; J7620-GY

== ENCOUNTER 2024-06-02 19:31 | Emergency (ER) | payer MEDICARE, OTHER ==
[2024-06-02 19:55] LABS: BASOPHILS PERCENT AUTO 0.5 % (0.0-1.0); EOSINOPHILS ABSOLUTE AUTO 0.3 K/mm3 (0.0-0.4); EOSINOPHILS PERCENT AUTO 4.5 % (0.0-6.0); HEMATOCRIT 38.4 % (37.0-47.0); HEMOGLOBIN 13.2 gm/dl (12.0-16.0); IMMATURE GRAN ABSOLUTE AUTO 0.01 K/mm3 (0.00-0.05); IMMATURE GRAN PERCENT AUTO 0.2 % (0.0-0.4); LYMPHOCYTES ABSOLUTE AUTO 1.4 K/mm3 (1.0-4.8); LYMPHOCYTES PERCENT AUTO 23.4 % (24.0-44.0); MEAN CORPUSCULAR HEMOGLOBIN 32.7 pg (28.0-32.0); MEAN CORPUSCULAR HGB CONC 34.4 g/dl (32.0-36.0); MEAN PLATELET VOLUME 8.7 fl (9.4-12.3); MONOCYTES ABSOLUTE AUTO 0.8 K/mm3 (0.0-0.8); MONOCYTES PERCENT AUTO 13.6 % (0.0-8.0); NEUTROPHILS ABSOLUTE AUTO 3.4 K/mm3 (1.8-7.7); NEUTROPHILS PERCENT AUTO 57.8 % (41.0-71.0); PLATELET COUNT,PLT 250 K/mm3 (150-400); RED BLOOD CELL COUNT 4.04 M/mm3 (4.10-5.30); WHITE BLOOD CELL COUNT,WBC 5.94 K/mm3 (3.9-11.3)
[2024-06-02] MEDS: ALPRAZolam 0.25 MG Tab PO ONE (20:00)
[2024-06-02 20:16] LABS: A/G RATIO 0.7 (1-2); ANION GAP 10.2 (5-15); BILIRUBIN TOTAL 0.2 mg/dL (0.2-1.0); BUN/CREATININE RATIO 14.4 (14-18); CALCIUM 8.9 mg/dL (8.5-10.1); CREATININE 0.9 mg/dL (0.55-1.02); EST CRCL DRUG DOSING (CG) 42.72 mL/min; MAGNESIUM 1.8 mg/dL (1.8-2.4); POTASSIUM,K 4.2 mEq/L (3.5-5.1); PROTEIN TOTAL,TP 7.5 g/dl (6.4-8.2)
[2024-06-02 20:21] LABS: INR 1.78; PROTHROMBIN TIME 18.2 SECONDS (9.7-12.0)
[2024-06-02 22:26] VITALS: BP 132/60; PULSE 69
== END 2024-06-02 22:24 | disposition home or self-care (01) ==
LOC: JD.ED 19:31
DX: R07.89 Other chest pain (principal); F41.9 Anxiety disorder, unspecified; R79.89 Other specified abnormal findings of blood chemistry; R05.9 Cough, unspecified; I11.0 Hypertensive heart disease with heart failure; I50.9 Heart failure, unspecified; I48.91 Unspecified atrial fibrillation; E78.00 Pure hypercholesterolemia, unspecified; Z88.8 Allergy status to other drugs, medicaments and biological substances; Z88.5 Allergy status to narcotic agent; Z79.82 Long term (current) use of aspirin; Z79.01 Long term (current) use of anticoagulants; Z79.51 Long term (current) use of inhaled steroids; Z79.899 Other long term (current) drug therapy
CPT/HCPCS: 36415; 71045; 80053; 83690; 83735; 83880; 84484; 85025; 85610; 87428; 93005; 99285; A9270; 93010; 99283

== ENCOUNTER 2024-06-22 10:39 | Emergency (ER) | payer MEDICARE, OTHER ==
[2024-06-22] MEDS ORDERED: Sodium Chloride 0.9% 10 ML Syringe FLUSH PRN (11:00)
[2024-06-22 11:07] LABS: BASOPHILS PERCENT AUTO 0.5 % (0.0-1.0); EOSINOPHILS ABSOLUTE AUTO 0.2 K/mm3 (0.0-0.4); EOSINOPHILS PERCENT AUTO 4.7 % (0.0-6.0); HEMATOCRIT 37.8 % (37.0-47.0); HEMOGLOBIN 13.1 gm/dl (12.0-16.0); LYMPHOCYTES ABSOLUTE AUTO 0.8 K/mm3 (1.0-4.8); LYMPHOCYTES PERCENT AUTO 17.2 % (24.0-44.0); MEAN CORPUSCULAR HEMOGLOBIN 32.6 pg (28.0-32.0); MEAN CORPUSCULAR HGB CONC 34.7 g/dl (32.0-36.0); MEAN PLATELET VOLUME 8.6 fl (9.4-12.3); MONOCYTES ABSOLUTE AUTO 0.6 K/mm3 (0.0-0.8); MONOCYTES PERCENT AUTO 13.8 % (0.0-8.0); NEUTROPHILS ABSOLUTE AUTO 2.8 K/mm3 (1.8-7.7); NEUTROPHILS PERCENT AUTO 63.8 % (41.0-71.0); PLATELET COUNT,PLT 221 K/mm3 (150-400); RED BLOOD CELL COUNT 4.02 M/mm3 (4.10-5.30); WHITE BLOOD CELL COUNT,WBC 4.43 K/mm3 (3.9-11.3)
[2024-06-22 11:22] LABS: INR 2.05; PROTHROMBIN TIME 20.7 SECONDS (9.7-12.0)
[2024-06-22 11:26] LABS: A/G RATIO 0.7 (1-2); ANION GAP 7.9 (5-15); BILIRUBIN TOTAL 0.6 mg/dL (0.2-1.0); BUN/CREATININE RATIO 8.9 (14-18); C-REACTIVE PROTEIN 0.41 mg/dL (<0.30); CALCIUM 8.8 mg/dL (8.5-10.1); CREATININE 0.9 mg/dL (0.55-1.02); EST CRCL DRUG DOSING (CG) 42.72 mL/min; MAGNESIUM 1.8 mg/dL (1.8-2.4); POTASSIUM,K 3.9 mEq/L (3.5-5.1); PROTEIN TOTAL,TP 7.5 g/dl (6.4-8.2)
[2024-06-22] MEDS: predniSONE 20 MG Tab PO ONE (12:57)
[2024-06-22 15:55] VITALS: BP 153/65; PULSE 72
== END 2024-06-22 13:00 | disposition home or self-care (01) ==
LOC: JD.ED 10:39
DX: J44.1 Chronic obstructive pulmonary disease with (acute) exacerbation (principal); I11.0 Hypertensive heart disease with heart failure; I50.9 Heart failure, unspecified; E03.9 Hypothyroidism, unspecified; Z88.5 Allergy status to narcotic agent; Z88.8 Allergy status to other drugs, medicaments and biological substances; Z79.82 Long term (current) use of aspirin; Z79.899 Other long term (current) drug therapy; Z79.890 Hormone replacement therapy
CPT/HCPCS: 36415; 71046; 80053; 83735; 83880; 84484; 85025; 85610; 86140; 93005; 99285; J7512; 93010; 99284

== ENCOUNTER 2024-07-18 16:28 | Inpatient (IN) | payer MEDICARE, OTHER ==
[2024-07-18] MEDS ORDERED: Sodium Chloride 0.9% 10 ML Syringe FLUSH PRN (17:07)
[2024-07-18] MEDS: Albuterol/Ipratropium 3.0-0.5 MG/3 ML Neb Soln NEB ONE (17:25)
[2024-07-18 17:26] LABS: O2 SATURATION ARTERIAL 92.9 % (96.0-97.0)
[2024-07-18 17:27] LABS: BASE EXCESS ARTERIAL 3.5 (-2-2.0); BICARBONATE,ARTERIAL 32.8 meq/L (22.0-26.0)
[2024-07-18 17:56] LABS: HEMATOCRIT 36.2 % (37.0-47.0); HEMOGLOBIN 12.6 gm/dl (12.0-16.0); MEAN CORPUSCULAR HEMOGLOBIN 33.6 pg (28.0-32.0); MEAN CORPUSCULAR HGB CONC 34.8 g/dl (32.0-36.0); MEAN CORPUSCULAR VOLUME 96.5 fl (83.0-99.0); MEAN PLATELET VOLUME 8.5 fl (9.4-12.3); PLATELET COUNT,PLT 247 K/mm3 (150-400); RED BLOOD CELL COUNT 3.75 M/mm3 (4.10-5.30); WHITE BLOOD CELL COUNT,WBC 9.35 K/mm3 (3.9-11.3)
[2024-07-18] MEDS: Albuterol 0.083% 2.5 MG/3 ML Neb Soln ONE (17:56)
[2024-07-18] MEDS: Albuterol 0.083% 2.5 MG/3 ML Neb Soln NEB ONE (17:56)
[2024-07-18] MEDS: methylPREDNISolone Sodium Succinate 125 MG/2 ML SDV IVPUSH ONE (18:10)
[2024-07-18 18:14] LABS: INR 2.25; PROTHROMBIN TIME 22.6 SECONDS (9.7-12.0)
[2024-07-18 18:26] LABS: A/G RATIO 0.7 (1-2); ALBUMIN 2.9 g/dl (3.4-5.0); ANION GAP 9.9 (5-15); BILIRUBIN TOTAL 0.4 mg/dL (0.2-1.0); BUN/CREATININE RATIO 13.8 (14-18); CALCIUM 8.4 mg/dL (8.5-10.1); CREATININE 0.8 mg/dL (0.55-1.02); EST CRCL DRUG DOSING (CG) 46.27 mL/min; POTASSIUM,K 3.9 mEq/L (3.5-5.1); PROTEIN TOTAL,TP 7.2 g/dl (6.4-8.2)
[2024-07-18 19:01] LABS: BAND PERCENT MAN 0 % (0-10); BASOPHILS PERCENT MAN 1 (0.1-1.2); EOSINOPHILS PERCENT MAN 3 % (0.7-5.8); LYMPHOCYTES % ATYPICAL MANUAL 0 %; LYMPHOCYTES PERCENT MAN 4 % (20-40); MONOCYTES PERCENT MAN 5 % (2-10)
[2024-07-18 19:09] LABS: TOXIC GRANULATION 1+ SLIGHT
[2024-07-18 19:10] LABS: PLATELET COUNT ESTIMATE ADEQUATE
[2024-07-18] MEDS: Azithromycin 500 MG in Sodium Chloride 0.9% 250 ML IV ONE (19:30)
[2024-07-18] MEDS ORDERED: Acetaminophen 325 MG Tab PO PRN (19:33)
[2024-07-18] MEDS ORDERED: Ondansetron 4 MG/2 ML SDV IV PRN (19:33)
[2024-07-18] MEDS ORDERED: Morphine 2 MG/ML SYRINGE IVPUSH PRN (19:33)
[2024-07-18] MEDS ORDERED: Naloxone 0.4 MG/ML SDV IVPUSH PRN (19:33)
[2024-07-18] MEDS ORDERED: Ketorolac 30 MG/ML SDV IVPUSH PRN (19:33)
[2024-07-18] MEDS ORDERED: LORazepam 2 MG/ML SDV IV PRN (19:33)
[2024-07-18] MEDS ORDERED: 50% Dextrose in Water 50 ML Syringe IVPUSH PRN (19:37)
[2024-07-18] MEDS ORDERED: hydrALAZINE 20 MG/ML SDV IVPUSH PRN (19:37)
[2024-07-18] MEDS ORDERED: Labetalol 100 MG/20 ML MDV IVPUSH PRN (19:37)
[2024-07-18] MEDS: Sodium Chloride 0.9% 1,000 ML IV SCH (20:29)
[2024-07-18] MEDS: Famotidine 20 MG/2 ML SDV IVPUSH SCH (20:30)
[2024-07-18] MEDS: Magnesium Sulfat/D5W 1GM/100ML 1 GM in Premix Bag 1 BAG IV ONE (20:30)
[2024-07-18] MEDS: Albuterol/Ipratropium 3.0-0.5 MG/3 ML Neb Soln NEB SCH (20:38)
[2024-07-18] MEDS: Insulin Lispro 100 Unit/ML 3 ML KwikPen SUBCUT SCH (21:16)
[2024-07-19] MEDS: methylPREDNISolone Sodium Succinate 40 MG/1 ML SDV IVPUSH SCH (02:00)
[2024-07-19 05:32] LABS: BASE EXCESS ARTERIAL 3.4 (-2-2.0); BICARBONATE,ARTERIAL 28.5 meq/L (22.0-26.0); O2 SATURATION ARTERIAL 96.3 % (96.0-97.0)
[2024-07-19 05:34] LABS: HEMATOCRIT 36.2 % (37.0-47.0); HEMOGLOBIN 12.6 gm/dl (12.0-16.0); IMMATURE GRAN ABSOLUTE AUTO 0.01 K/mm3 (0.00-0.05); IMMATURE GRAN PERCENT AUTO 0.3 % (0.0-0.4); LYMPHOCYTES ABSOLUTE AUTO 0.2 K/mm3 (1.0-4.8); LYMPHOCYTES PERCENT AUTO 5.9 % (24.0-44.0); MEAN CORPUSCULAR HEMOGLOBIN 33.2 pg (28.0-32.0); MEAN CORPUSCULAR HGB CONC 34.8 g/dl (32.0-36.0); MEAN CORPUSCULAR VOLUME 95.5 fl (83.0-99.0); MEAN PLATELET VOLUME 8.6 fl (9.4-12.3); MONOCYTES PERCENT AUTO 0.7 % (0.0-8.0); NEUTROPHILS ABSOLUTE AUTO 2.9 K/mm3 (1.8-7.7); NEUTROPHILS PERCENT AUTO 93.1 % (41.0-71.0); PLATELET COUNT,PLT 229 K/mm3 (150-400); RED BLOOD CELL COUNT 3.79 M/mm3 (4.10-5.30); WHITE BLOOD CELL COUNT,WBC 3.07 K/mm3 (3.9-11.3)
[2024-07-19 05:58] LABS: INR 2.14; PROTHROMBIN TIME 21.6 SECONDS (9.7-12.0)
[2024-07-19 06:04] LABS: A/G RATIO 0.6 (1-2); ALBUMIN 2.7 g/dl (3.4-5.0); BILIRUBIN TOTAL 0.4 mg/dL (0.2-1.0); BUN/CREATININE RATIO 17.1 (14-18); CALCIUM 8.9 mg/dL (8.5-10.1); CREATININE 0.7 mg/dL (0.55-1.02); EST CRCL DRUG DOSING (CG) 53.32 mL/min; MAGNESIUM 2.1 mg/dL (1.8-2.4); PHOSPHORUS 3.8 mg/dL (2.6-4.7); PROTEIN TOTAL,TP 6.9 g/dl (6.4-8.2)
[2024-07-19 06:19] LABS: SLIDE REVIEW ABNORMAL SMEAR
[2024-07-19] MEDS: Sennosides/Docusate Sodium 50-8.6 MG Tab PO PRN (08:36)
[2024-07-19] MEDS: Azithromycin 500 MG in Sodium Chloride 0.9% 250 ML IV SCH (16:14)
[2024-07-19] MEDS ORDERED: hydrALAZINE 25 MG Tab PO PRN (16:55)
[2024-07-19] MEDS: Warfarin 5 MG Tab PO SCH (17:00)
[2024-07-19] MEDS: Labetalol 100 MG/20 ML MDV IVPUSH ONE (17:33)
[2024-07-19] MEDS: Carvedilol 6.25 MG Tab PO SCH (18:28)
[2024-07-19] MEDS: Diltiazem 240 MG Cap.ER PO SCH (18:34)
[2024-07-19] MEDS: Bumetanide 1 MG Tab PO SCH ×2 (19:30→19:35)
[2024-07-19] MEDS: Melatonin 3 MG Tab PO PRN (20:18)
[2024-07-19] MEDS: buPROPion 150 MG Tab.SR PO SCH (20:18)
[2024-07-19] MEDS: Doxazosin 2 MG Tab PO SCH (20:18)
[2024-07-19] MEDS: Tiotropium Bromide 4 GM Inhalation Spray (2.5mcg/1 dose; 10 doses) INH SCH (20:29)
[2024-07-20 05:57] LABS: ANION GAP 10.1 (5-15); BUN/CREATININE RATIO 17.5 (14-18); CALCIUM 8.9 mg/dL (8.5-10.1); CREATININE 0.8 mg/dL (0.55-1.02); EST CRCL DRUG DOSING (CG) 46.52 mL/min; POTASSIUM,K 4.1 mEq/L (3.5-5.1); TSH 0.747 uIU/mL (0.358-3.74)
[2024-07-20 06:00] LABS: INR 2.4
[2024-07-20] MEDS: Levothyroxine 50 MCG Tab PO SCH (06:11)
[2024-07-20] MEDS: Pantoprazole 40 MG Tab.CR PO SCH (06:11)
[2024-07-20] MEDS: Losartan 25 MG Tab PO SCH (08:00)
[2024-07-20] MEDS: predniSONE 20 MG Tab PO SCH (08:03)
[2024-07-20] MEDS: Albuterol 6.7 GM Inhaler INH PRN (08:06)
[2024-07-20] MEDS: Digoxin 125 MCG Tab PO SCH (11:11)
[2024-07-20] MEDS: Albuterol/Ipratropium 3.0-0.5 MG/3 ML Neb Soln NEB PRN (11:29)
[2024-07-20] MEDS: Albuterol/Ipratropium 3.0-0.5 MG/3 ML Neb Soln NEB SCH (15:03)
[2024-07-20] MEDS: Warfarin 2.5 MG Tab PO SCH (17:05)
[2024-07-21] MEDS: Albuterol/Ipratropium 3.0-0.5 MG/3 ML Neb Soln NEB PRN (08:44)
[2024-07-21 08:59] LABS: INR 3.15
[2024-07-21] MEDS: Sodium Chloride 3% Inhalation Soln 4 ML Neb NEB PRN (09:14)
[2024-07-21] MEDS: Nicotine 14 MG/24 Hr Patch TRDERM SCH (09:37)
[2024-07-21] MEDS ORDERED: Ondansetron 4 MG Tab.DIS PO PRN ×2 (10:39→10:41)
[2024-07-21] MEDS ORDERED: LORazepam 1 MG Tab PO PRN (10:40)
[2024-07-21] MEDS: Warfarin** 1 MG TABLET PO ONE (17:33)
[2024-07-21] MEDS: Insulin Lispro 100 Unit/ML 3 ML KwikPen SUBCUT SCH (17:37)
[2024-07-22 04:48] LABS: INR 3.19; PROTHROMBIN TIME 31.3 SECONDS (9.7-12.0)
[2024-07-22 05:01] LABS: ANION GAP 7.3 (5-15); CALCIUM 8.3 mg/dL (8.5-10.1); CREATININE 0.8 mg/dL (0.55-1.02); EST CRCL DRUG DOSING (CG) 47.12 mL/min; MAGNESIUM 1.8 mg/dL (1.8-2.4); PHOSPHORUS 2.7 mg/dL (2.6-4.7); POTASSIUM,K 3.3 mEq/L (3.5-5.1)
[2024-07-22] MEDS: Insulin Lispro 100 Unit/ML 3 ML KwikPen SUBCUT ONE (12:26)
[2024-07-22] MEDS: Potassium Chloride 20 MEQ Tab.ER PO ONE (13:44)
[2024-07-22 15:20] VITALS: BP 151/79; PULSE 88
[2024-07-22] MEDS ORDERED: Warfarin** 1 MG TABLET PO ONE (18:00)
== END 2024-07-22 15:49 | disposition home or self-care (01) | DRG 189 ==
LOC: JD.ED 16:28 → SUPCPDRO 16:28 → JD.ICU 18:42
PROVIDERS: ADMIT Student in an Organized Health Care Education/Training Program; ATTEND Student in an Organized Health Care Education/Training Program
PROC: 4A133R1 Monitoring of Arterial Saturation, Peripheral, Percutaneous Approach (ICD-10-PCS; principal; 2024-07-18)
DX: J96.01 Acute respiratory failure with hypoxia (principal); J44.1 Chronic obstructive pulmonary disease with (acute) exacerbation; J96.02 Acute respiratory failure with hypercapnia; I50.9 Heart failure, unspecified; E03.9 Hypothyroidism, unspecified; F41.9 Anxiety disorder, unspecified; I11.0 Hypertensive heart disease with heart failure; K21.9 Gastro-esophageal reflux disease without esophagitis; I48.91 Unspecified atrial fibrillation; Z88.8 Allergy status to other drugs, medicaments and biological substances; Z79.82 Long term (current) use of aspirin; Z79.01 Long term (current) use of anticoagulants; Z79.52 Long term (current) use of systemic steroids; Z79.899 Other long term (current) drug therapy; Z98.49 Cataract extraction status, unspecified eye; Z98.890 Other specified postprocedural states; Z72.0 Tobacco use
CPT/HCPCS: 36415; 36600; 71045; 71045-26; 71046; 71046-26; 80048; 80053; 82803; 82947; 83605; 83735; 83880; 84100; 84443; 84484; 85007; 85025; 85027; 85610; 85730; 87040; 93005; 94640; 94660; 94667; 94668; 94761; 96374; 99285-25; A9270-GY; J0456; J1815; J1920; J2919; J3475; J3490; J7030; J7512

== ENCOUNTER 2025-01-09 13:43 | Emergency (ER) | payer MEDICARE, OTHER ==
[2025-01-09] MEDS ORDERED: Sodium Chloride 0.9% 10 ML Syringe FLUSH PRN (14:01)
[2025-01-09 14:11] LABS: BASOPHILS ABSOLUTE AUTO 0.0 K/mm3 (0.0-0.2); BASOPHILS PERCENT AUTO 0.8 % (0.0-1.0); EOSINOPHILS ABSOLUTE AUTO 0.3 K/mm3 (0.0-0.4); EOSINOPHILS PERCENT AUTO 6.3 % (0.0-6.0); IMMATURE GRAN ABSOLUTE AUTO 0.01 K/mm3 (0.00-0.05); IMMATURE GRAN PERCENT AUTO 0.2 % (0.0-0.4); LYMPHOCYTES ABSOLUTE AUTO 1.1 K/mm3 (1.0-4.8); LYMPHOCYTES PERCENT AUTO 21.4 % (24.0-44.0); MEAN PLATELET VOLUME 8.5 fl (9.4-12.3); MONOCYTES ABSOLUTE AUTO 0.6 K/mm3 (0.0-0.8); MONOCYTES PERCENT AUTO 11.8 % (0.0-8.0); NEUTROPHILS ABSOLUTE AUTO 2.9 K/mm3 (1.8-7.7); NEUTROPHILS PERCENT AUTO 59.5 % (41.0-71.0); NRBC ABSOLUTE 0.00 (0.00-0.02); NRBC PERCENT 0.0 % (0.0-0.2); PLATELET COUNT,PLT 205 K/mm3 (150-400); RED BLOOD CELL COUNT 3.84 M/mm3 (4.10-5.30); WHITE BLOOD CELL COUNT,WBC 4.91 K/mm3 (3.9-11.3)
[2025-01-09 14:29] LABS: INR 1.6
[2025-01-09 14:37] LABS: APPEARANCE,URINE CLEAR (Clear); GLUCOSE,URINE NEGATIVE (Negative); OCCULT BLOOD,URINE TRACE-LYSED (Negative)
[2025-01-09 14:51] LABS: A/G RATIO 0.7 (1-2); ALANINE AMINOTRANSFERASE,ALT 16.0 U/L (14-59); ASPARTATE AMNIOTRANSFERASE,AST 18.0 U/L (15-37); BILIRUBIN TOTAL 0.4 mg/dL (0.2-1.0); BLOOD UREA NITROGEN,BUN 18.0 mg/dL (7-18); CARBON DIOXIDE,CO2 31.0 mEq/L (21-32); CHLORIDE,CL 95.0 mEq/L (98-107); CREATININE 1.1 mg/dL (0.55-1.02); EST CRCL DRUG DOSING (CG) 35.77 mL/min; ESTIMATED GFR 52.0 mL/min (>60); GLUCOSE RANDOM 100.0 mg/dL (70-99); POTASSIUM,K 4.4 mEq/L (3.5-5.1); PROTEIN TOTAL,TP 7.2 g/dl (6.4-8.2); SODIUM,NA 130.0 mEq/L (136-145); TROPONIN I HIGH SENSITIVITY 11.0 pg/mL (<=51)
[2025-01-09 14:54] LABS: EPITHELIAL CELLS,URINE 0-5 /hpf (0-5)
[2025-01-09] MEDS: Furosemide 20 MG/2 ML VIAL IVPUSH ONE (17:47)
[2025-01-09 18:38] VITALS: BP 176/64; PULSE 72
== END 2025-01-09 18:05 | disposition home or self-care (01) ==
LOC: JD.ED 13:43
DX: R07.9 Chest pain, unspecified (principal); R79.1 Abnormal coagulation profile; R79.89 Other specified abnormal findings of blood chemistry; I48.91 Unspecified atrial fibrillation; Z91.048 Other nonmedicinal substance allergy status; Z88.5 Allergy status to narcotic agent; Z88.8 Allergy status to other drugs, medicaments and biological substances; Z79.899 Other long term (current) drug therapy; Z79.01 Long term (current) use of anticoagulants; I11.0 Hypertensive heart disease with heart failure; I50.9 Heart failure, unspecified; E78.00 Pure hypercholesterolemia, unspecified; E03.9 Hypothyroidism, unspecified
CPT/HCPCS: 36415; 71045; 80053; 80162; 81001; 83735; 83880; 84484; 85025; 85379; 85610; 93005; 96374; 99285; A9270; J1938; 93010; 99283